=== PATIENT | male | born 1970 | race Caucasian/White ===

== ENCOUNTER → 2020-11-01 02:18 | Outpatient (CLI) | payer SELFPAY ==
[2020-11-01 19:28] LABS: SARS-CoV-2 RNA PCR Negative
== END ==
PROVIDERS: PCP Nurse Practitioner Family; Visit Provider Internal Medicine Gastroenterology
DX: Z01.812 Encounter for preprocedural laboratory examination (principal); Z20.822 Contact with and (suspected) exposure to COVID-19
CPT/HCPCS: C9803; U0003; U0005

== ENCOUNTER 2020-11-04 01:14 | Day surgery (SDC) | payer OTHER, SELFPAY ==
[2020-08-30 14:32] VITALS: BMI 34.4
[2020-10-23 11:01] VITALS: BMI 33.0
[2020-11-04 06:27] VITALS: BMI 33.3
[2020-11-04 06:34] VITALS: BP 135/77; PULSE 58; RESP 18; TEMP 36.2; O2SAT 100
[2020-11-04] MEDS: LACTATED RINGERS 1,000 ML 150 ML IV CONT (06:47)
--- NOTE | 2020-11-04 07:21 | WPDANESEPPF ---
Anes - Initial Pre Proc Eval Procedure: Operation Date: 11/04/20 07:30 Proposed Procedures p Screening Colonoscopy - Kenney Gomez MD Date/Time: 11/04/20 07:21 Surgeon: Kenney Gomez MD Pre Op Diagnosis: Neoplasm Screening Patient Data Age: 50 Gender: M Height: 6 ft 3 in Weight: 120.7 kg Last Vital Signs Temp 97.1 F L 11/04/20 06:34 Pulse 58 L 11/04/20 06:34 Resp 18 11/04/20 06:34 BP 135/77 11/04/20 06:34 Pulse Ox 100 11/04/20 06:34 Allergies Allergy/AdvReac Type Severity Reaction Status Date / Time NKDA Allergy Mild unknown Uncoded 11/04/20 06:26 Home Medications Medication Instructions Recorded Confirmed Type No Home Medications 11/04/20 11/04/20 History Patient hx anesthesia problems: none Family hx anesthesia problems: none PMFSH Past Medical History Medical History (Updated 11/04/20 @ 07:20 by Maury Olsen MD) Kidney mass had removed; no chemo or radiation Family History Family History (Updated 08/12/20 @ 09:37 by Rosita Arteaga MA) Father Malignant neoplasm of prostate Social History Social History (Updated 08/12/20 @ 09:38 by Rosita Arteaga MA) Smoking status: Never smoker Alcohol intake: never Substance use: never Substance use type: does not use Living arrangements: with family Additional living arrangements comments: Gender identity (if verbalized by the patient): Male Spiritual care concerns: No Anes - Eval Final PreProcedure Day of Procedure 11/04/20 07:21 Patient weight: obese Heart: regular rate and rhythm Lungs: clear to auscultation Airway: Mallampati scale class II Neurological: alert and oriented Last oral intake: >/= 8 hours ASA classification: III Emergent: no Anesthetic plan: proceed Anesthesia type and monitoring: general GIVS and standard monitoring Informed Consent: The patient's anesthetic plan and its attendant risks and benefits were discussed with the patient/family/POA. Questions were solicited and answers provided to the satisfaction of the patient/family/POA.
--- NOTE | 2020-11-04 07:28 | PM.HPGS ---
History of Present Illness History of Present Illness Consent: Risks, benefits, and alternatives have been discussed and questions answered. Patient agrees to proceed with procedure. Chief complaint: Neoplasm Screening Narrative: Philip Briseno is a 50 year old male here for first screening colonoscopy Review of Systems Constitutional: Constitutional: Denies headache(s) and Denies weakness Eyes: Eyes: Denies blurry vision ENT: Reports Normal hearing present, Denies headache(s) and Denies neck pain Cardiovascular: Cardiovascular: Denies chest pain and Denies dyspnea Respiratory: Respiratory: Denies dyspnea Gastrointestinal: Gastrointestinal: Reports no additional gastrointestinal complaints Genitourinary: Genitourinary: Denies dysuria Musculoskeletal: Musculoskeletal: Denies neck pain Integumentary/Breasts: Skin/Breast: Denies dry skin Neurologic: Reports Normal hearing present, Denies headache(s) and Denies weakness Psychiatric: Psychiatric: Denies anxiety Endocrine: Endocrine: Denies change in body appearance Hematologic/Lymphatic: Hematologic/Lymphatic: Denies easy bleeding Allergic/Immunologic: Allergic/Immunologic: Denies urticaria PMF Past Medical History Medical History (Updated 11/04/20 @ 07:20 by Maury Olsen MD) Kidney mass had removed; no chemo or radiation Family History Family History (Updated 08/12/20 @ 09:37 by Rosita Arteaga MA) Father Malignant neoplasm of prostate Social History Social History (Updated 08/12/20 @ 09:38 by Rosita Arteaga MA) Smoking status: Never smoker Alcohol intake: never Substance use: never Substance use type: does not use Living arrangements: with family Additional living arrangements comments: Gender identity (if verbalized by the patient): Male Spiritual care concerns: No Meds Home Medications and Allergies Home Medications Medication Instructions Recorded Confirmed Type No Home Medications 11/04/20 11/04/20 History Allergies Allergy/AdvReac Type Severity Reaction Status Date / Time NKDA Allergy Mild unknown Uncoded 11/04/20 06:26 Vital Signs Vital Signs - 24 hr 11/04/20 06:34 Temperature 97.1 F L Pulse Rate 58 L Respiratory Rate 18 Blood Pressure 135/77 Pulse Oximetry 100 Exam Const: General: comfortable and no acute distress HENMT: General nose exam: Normal nares present Eyes: General: appearance normal, both eyes and all related structures Neck: Neck: no JVD Resp: Auscultation: clear to auscultation bilaterally Cardio: Rate: regular rate Rhythm: regular rhythm GI: Inspection: non-distended GI Palp: Yes Soft to palpation Skin: General skin exam: normal color Neuro: General: gait normal Speech: normal speech Extrem: General: normal to inspection Psych: Mental Status: mental status grossly normal Assessment and Plan Assessment and plan (1) Screening for malignant neoplasm of colon: Code(s): Z12.11 - Encounter for screening for malignant neoplasm of colon Status: Acute Assessment and Plan: proceed with colonoscopy
[2020-11-04 07:47] VITALS: BP 97/46; PULSE 62; RESP 17; O2SAT 97
[2020-11-04 07:57] VITALS: BP 100/50; PULSE 59; RESP 13; O2SAT 99
[2020-11-04 08:07] VITALS: BP 113/71; PULSE 56; RESP 24; O2SAT 100
== END 2020-11-04 08:13 | disposition home or self-care (01) ==
PROVIDERS: PCP Nurse Practitioner Family; Visit Provider Internal Medicine Gastroenterology
PROC: 0DJD8ZZ Inspection of Lower Intestinal Tract, Via Natural or Artificial Opening Endoscopic (ICD-10-PCS; CPT 45378; principal; 2020-11-04 07:30)
DX: Z12.11 Encounter for screening for malignant neoplasm of colon (principal); K57.30 Diverticulosis of large intestine without perforation or abscess without bleeding; K64.8 Other hemorrhoids; E66.9 Obesity, unspecified; Z68.33 Body mass index [BMI] 33.0-33.9, adult
CPT/HCPCS: 45378; J2704; J7120

== ENCOUNTER 2022-06-16 14:32 | Outpatient (CLI) | payer OTHER, SELFPAY | END 2022-06-16 14:33 | disposition home or self-care (01) | LOC: CHSLAB 14:34 | PROVIDERS: PCP Specialist; Visit Provider Specialist | DX: D22.4 Melanocytic nevi of scalp and neck (principal) | CPT/HCPCS: 88305 ==

== ENCOUNTER 2025-04-24 09:12 | Outpatient (CLI) | payer OTHER, SELFPAY ==
[2025-04-24 09:31] LABS: Hematocrit 49.1 % (40.0-54.0); Hemoglobin 16.3 g/dL (14.0-18.0); Immature Granulocyte Percent A 0.3 % (0.0-0.0); Lymphocytes Absolute Auto 2.98 K/mm3 (1.10-4.50); Mean Corpuscular HGB Conc 33.2 g/dL (32-36); Mean Corpuscular Hemoglobin 28.2 pg (27.0-31.0); Mean Corpuscular Volume 84.9 fL (78.0-102.0); Nucleated Red Blood Cells Absolute Auto 0.00 K/mm3 (0.00-0.00); Nucleated Red Blood Cells Perc 0.0 % (0-0.0); Platelet Count Result 245 K/mm3 (150-420); Red Blood Count 5.78 M/mm3 (4.70-6.10); White Blood Count 7.8 K/mm3 (4.8-10.8)
--- OUTSIDE RECORDS SUMMARY | 2025-04-24 10:01 | XMS_ITS | Clinical Summary ---
Author Organization [facility] [address] [place] [id number] Care Team Providers Care Printer Slotter Helper Name Role Phone No, Physician Primary Care Provider [phone] Allergies No known active allergies Medications L.acid/L.casei/ B.bif/B.cesar/FOS (PROBIOTIC BLEND ORAL) Take 1 tablet by mouth daily Active oxyCODONE-aceta minophen (PERCOCET) 5-325 mg per tabletIndicatio ns:Pain Take 1-2 tablets by mouth every 6 (six) hours as needed for pain Do not exceed 8 tablets per day. 30 tablet 0 Active Additional Information Patient not taking.Reported on 08/19/2020 docusate sodium (COLACE) 100 mg capsuleIndicati ons:constipatio n Take 1 capsule (100 mg total) by mouth 2 (two) times a day 6 capsule 0 Active Additional Information Patient not taking.Reported on 08/19/2020 ondansetron (ZOFRAN) 4 mg tablet Take 1 tablet (4 mg total) by mouth every 8 (eight) hours as needed for nausea or vomiting 10 tablet 0 Active Additional Information Patient not taking.Reported on 08/19/2020 Active Problems Problem Noted Date Diagnosed Date Left kidney mass 06/25/2020 Surgical History Surgery Date Site/Laterality Comments APPENDECTOMY TONSILLECTOMY Medical History Medical History Date Comments Renal mass, left Family History Medical History Relation Name Comments Prostate cancer Father No Known Problems Mother Relation Name Status Comments Father Mother Alive Social History Tobacco Use Types Packs/Day Years Used Date Smoking Tobacco: Never Smokeless Tobacco: Never Alcohol Use Standard Drinks/Week Comments Not Currently 0 (1 standard drink = 0.6 oz pur e alcohol) social drinker Sex and Gender Information Value Date Recorded Sex Assigned at Not on file Legal Sex Male 10:28 AM SAP MOBILITY ARCHITECT Gender Identity Not on file Sexual Orientation Not on file Obstetrics History Last Filed Vital Signs Vital Sign Reading Time Taken Comments Blood Pressure 114/64 08/07/2020 8:05 AM SAP MOBILITY ARCHITECT Pulse 85 08/07/2020 8:05 AM SAP MOBILITY ARCHITECT Temperature 36.4 C (97.5 F) 08/19/2020 8:26 AM SAP MOBILITY ARCHITECT Respiratory Rate 20 08/07/2020 8:05 AM SAP MOBILITY ARCHITECT Oxygen Saturation 96% 08/07/2020 8:05 AM SAP MOBILITY ARCHITECT Inhaled Oxygen Concentration - - Weight 123.8 kg (273 lb) 08/06/2020 6:02 AM SAP MOBILITY ARCHITECT Height 190.5 cm (6' 3) 08/06/2020 6:02 AM SAP MOBILITY ARCHITECT Body Mass Index 34.12 08/06/2020 6:02 AM SAP MOBILITY ARCHITECT Plan of Treatment Not on file Insurance [employer] [address] HUFFMAN [address] CHOICE PLUS [facility] HMO Advance Directives For more information, please contact: [phone] * Full Code (Latest Code Status on File) Date Activated Date Inactivated Comments 08/06/2020 12:59 PM 08/07/2020 8:59 PM Care Teams Printer Slotter Helper Relationship Specialty Start Date End Date No, Physician PCP - General 06/18/20
--- OUTSIDE RECORDS SUMMARY | 2025-04-24 10:01 | XMS_ITS | Clinical Summary ---
Author Organization [facility] Address [address] [place] [address] Care Team Providers Care Business Quality Assurance Analyst Name Role Phone Ellen Easley ADVERTISING ACCOUNT REPRESENTATIVE-FRACTIONATING STILL OPERATOR Primary Care Provider Source Comments [facility],non-owned Affiliates and Associated Physician Practices is amultiple site organization consisting of ambulatory clinics and hospital sitesin [place], [place], [place] and [place]. This disclosure is being madepursuant to the Care Everywhere program and may not contain all information available regarding this patient. Last updated 18.[facility] Allergies No known active allergies Medications * Be aware that medications may not be up to date on this document. Alwaysverify current medications with the patient. No known medications Social History Tobacco Use Types Packs/Day Years Used Date Smoking Tobacco: Never Smokeless Tobacco: Never Alcohol Use Standard Drinks/Week Comments Yes 0 (1 standard drink = 0.6 oz pur e alcohol) AUDIT-C Answer Date Recorded Q1: How often do you have a drink containing alc ohol? Monthly or less 06/28/2020 Q2: How many drinks containi ng alcohol do you have on a typical day when you are drinking? 1 or 2 06/28/2020 Frequency of Binge Drinking Not on file 06/16 Sex and Gender Information Value Date Recorded Sex Assigned at Not on file Legal Sex Male 3:33 AM TERRAZZO WORKER APPRENTICE Gender Identity Not on file Sexual Orientation Not on file Last Filed Vital Signs Vital Sign Reading Time Taken Comments Blood Pressure 133/77 06/28/2020 7:56 AM TERRAZZO WORKER APPRENTICE Pulse 63 06/28/2020 7:56 AM TERRAZZO WORKER APPRENTICE Temperature 36.5 C (97.7 F) 06/28/2020 7:56 AM TERRAZZO WORKER APPRENTICE Respiratory Rate 18 06/28/2020 7:56 AM TERRAZZO WORKER APPRENTICE Oxygen Saturation 100% 06/28/2020 7:56 AM TERRAZZO WORKER APPRENTICE Inhaled Oxygen Concentration - - Weight 120.2 kg (265 lb) 06/28/2020 7:56 AM TERRAZZO WORKER APPRENTICE Height 190.5 cm (6' 3) 06/28/2020 7:56 AM TERRAZZO WORKER APPRENTICE Body Mass Index 33.12 06/28/2020 7:56 AM TERRAZZO WORKER APPRENTICE Plan of Treatment Health Maintenance Due Date Last Done Comments COLOGUARD (AGES 45-75) - COL ON CA SCREENING 1968 COLON MONITORING 1968 COLONOSCOPY - COLON CA SCREENING 1968 CT COLONOGRAPHY - COLON CA SCREENING 1968 Colorectal Cancer Screening 1968 FIT - COLON CA SCREENING 1968 FLEX SIG - COLON CA SCREENING 1968 LIPID TESTING 1968 HIV SCREENING 1983 HEPATITIS C SCREENING 04/28/1986 DTAP/TDAP/TD VACCINES (1 - Tdap) 1987 HEPATITIS B VACCINE (1 of 3 - 19+ 3-dose series) 1987 PNEUMOCOCCAL VACCINE 50+ (1 of 1 - PCV) 2018 ZOSTER VACCINE (1 of 2) 2018 SCREENING FOR DIABETES 06/28/2020 COVID-19 VACCINE (1 - 2023-2 5 season) 2024 DEPRESSION SCREENING 08/16/2024 INFLUENZA VACCINE (#1) 2025 HIB VACCINE Aged Out No longer eligi ble based on patient's age to complete this topic HPV VACCINE Aged Out No longer eligi ble based on patient's age to complete this topic MENINGOCOCCAL (Group B) VACC INE SHARED DECISION-MAKING Aged Out No longer eligibl e based on patient's age to complete this topic MENINGOCOCCAL GROUPS A/C/Y/W VACCINE Aged Out No longer eligible b ased on patient's age to complete this topic Insurance [facility] [place] [id number] [facility] Member Subscriber Plan / Payer (Ef fective 2019-Present) Name:Philip Briseno [place] Relation to Subscriber:Self Name:Philip Briseno Payer ID:[id number] (NAIC) Group ID:Not on file Type:[facility] Address: [place] [id number] [employer] Liability Care Teams Business Quality Assurance Analyst Relationship Specialty Start Date End Date Ellen Easley, ADVERTISING ACCOUNT REPRESENTATIVE-FRACTIONATING STILL OPERATOR [address] [place] [address] PCP - General 06/30/22
[2025-04-24 10:13] LABS: Alanine Aminotransferase 22 U/L (6-50); Albumin Level 4.9 g/dL (3.5-5.1); Alkaline Phosphatase 60 U/L (38-126); Anion Gap 13 mmol/L (4-12); Aspartate Amino Transferase 30 U/L (17-59); Bilirubin,Total 1.2 mg/dL (0.2-1.3); Blood Urea Nitrogen 19 mg/dL (9-20); Calcium 10.2 mg/dL (8.4-10.2); Carbon Dioxide 26 mmol/L (22-30); Chloride 104 mmol/L (98-107); Cholesterol 147 mg/dL (0-200); Estimated Glomerular Filt Rate > 60; Glucose 89 mg/dL (65-110); HDL Direct 50 mg/dL; Osmolality Calculated 297 mOsm/kg (285-295); Potassium 4.7 mmol/L (3.4-5.0); Sodium 143 mmol/L (137-145); Total Protein 7.7 g/dL (6.3-8.2); Triglycerides 66 mg/dL (<150)
[2025-04-24 10:43] LABS: Prostate Specific Antigen 1.3 ng/mL (< OR = 4.0)
[2025-04-24 10:44] LABS: Thyroid Stimulating Hormone Reflex 1.070 uIU/mL (0.465-4.68)
== END 2025-04-24 09:13 | disposition home or self-care (01) ==
PROVIDERS: PCP Family Medicine; Visit Provider Family Medicine
DX: Z00.00 Encounter for general adult medical examination without abnormal findings (principal); E03.9 Hypothyroidism, unspecified; R35.1 Nocturia
CPT/HCPCS: 36415; 80053; 80061; 84153; 84443; 85025; G0103